=== PATIENT | female | born 1975 | race Caucasian/White ===

== ENCOUNTER 2024-12-24 17:51 | Emergency (ER) | payer SELFPAY ==
[~2024-12-24] VITALS: Ht 160 cm; Wt 86.2 kg
[2024-12-24 17:54] VITALS: TEMP 97.4
[2024-12-24] MEDS: ORPHENADRINE CITRATE 30 MG/ML VIAL IM ONE (18:17)
[2024-12-24] MEDS: KETOROLAC TROMETHAMINE 30 MG/ML VIAL IV STA (18:18)
[2024-12-24] MEDS ORDERED: MEDROL4 M2 PO (18:21)
[2024-12-24] MEDS ORDERED: NAPROSYN500 MG PO (18:21)
[2024-12-24] MEDS ORDERED: ORPHENADRINE C100 MG PO (18:21)
[2024-12-24 19:10] VITALS: PULSE 59; RESP 17
[2024-12-24 19:19] VITALS: BP 113/75; O2SAT 100
== END 2024-12-24 19:17 | disposition home or self-care (01) ==
LOC: ER 18:10
DX: S39.012A Strain of muscle, fascia and tendon of lower back, initial encounter (principal); X50.1XXA Overexertion from prolonged static or awkward postures, initial encounter; Y92.89 Other specified places as the place of occurrence of the external cause; D64.9 Anemia, unspecified
CPT/HCPCS: 99283; J1885; J2360